=== PATIENT | female | born 1945 | race Asian ===

== ENCOUNTER → 2019-09-19 | Outpatient (CLI) | payer MEDICARE, MEDICAID ==
[~2019-09-19] VITALS: Ht 144.8 cm; Wt 57.2 kg
[~2019-09-19] MED LIST: ALBU8.5H8 IH; ALEN70TA10 PO; AMLO5TAB9 PO; ASPI81TA87 PO; BUDE10.2 IH; CALC-878 PO; CITA10TA68 PO; FEXO-59 PO; FISH1CAP49 PO; FLUT9.9S NASAL; FOLI-44 PO; LOSA50TA65 PO; LOVA20 PO; MIRALAX PO; MONT10TA21 PO; OCUVITE SOFTGE1 EACH PO
[2019-09-19 11:48] VITALS: BP 134/76
== END | disposition home or self-care (01) ==
LOC: SRCNTR 11:47
PROVIDERS: ATTEND Internal Medicine Critical Care Medicine
DX: I10 Essential (primary) hypertension (principal); J45.909 Unspecified asthma, uncomplicated; E04.1 Nontoxic single thyroid nodule
CPT/HCPCS: G0463